=== PATIENT | male | born 1965 | race Caucasian/White ===

== ENCOUNTER 2017-09-05 07:45 | Emergency (ER) | payer BC, OTHER ==
[~2017-09-05] VITALS: Ht 182.9 cm; Wt 86.8 kg
[~2017-09-05 07:45] MED LIST: ACIP20TA19 PO; ASPI81 PO; CYCL5TAB PO; GLUCTAB PO; INSU100V2 IJ; INSU100V3 SC; LOTE40TA PO; PRAV40TA PO; TYLE3 PO; [UNRECOGNIZED DRUG - CODE] PO
[2017-09-05 07:47] VITALS: BP 133/81; PULSE 83; RESP 16; TEMP 97.8; O2SAT 97
[2017-09-05] MEDS ORDERED: GABA100C4 PO (08:05)
[2017-09-05] MEDS ORDERED: BACT800T5 PO (08:05)
[2017-09-05] MEDS ORDERED: IRBE75TA5 PO (08:05)
[2017-09-05] MEDS ORDERED: SODIUM CHLORIDE 0.9% FLUSH 10 ML FLUSH IVF PRN (08:15)
--- NOTE | 2017-09-05 08:23 | PD ---
HPI Chief Complaint: Skin Problem Time Seen by Provider: 08:07 Travel History International Travel<30 days: No Contact w/Intl Traveler<30days: No Traveled to known affect area: No History of Present Illness HPI 52-year-old male states he has had a lesion to his right private area for the past 3 days. He states that he called his physician yesterday and was started on Augmentin and trying warm washcloths. He denies any improvement and states in fact it is getting bigger. He denies any other concurrent complaints at this time. Location is primary. Quality is red. Severity is painful per patient. He states it hurts worse if you touch the area. He denies any other modifying factors. PFSH Past Medical History Arthritis: Yes High Cholesterol: Yes Diabetes: Yes Patient Takes Glucophage: No Diminished Hearing: No GERD: Yes Hypertension: Yes Neurologic: Yes (NEUROPATHY) Influenza Vaccination: No ?: Not Past Surgical History Appendectomy: Yes Tonsillectomy: Yes Other Surgery: Yes (EUSTATION TUBE) Social History Alcohol Use: Yes (3 TIMES A YEAR, 1 LIQUOR DRINK) Tobacco Use: Yes (CIGARETTES, 1 PPD X 18 YEARS) Substance Use: No Allergies-Medications (Allergen,Severity, Reaction): Coded Allergies: No Known Allergies (Verified Adverse Reaction, Unknown, 09/05/17) Reported Meds & Prescriptions Reported Meds & Active Scripts Active Reported Bactrim DS (Sulfamethoxazole-Trimethoprim) 800-160 Mg Tab 1 Tab PO BID Gabapentin 100 Mg Cap 200 Mg PO TID Irbesartan 75 Mg Tab 0 PO HS Review of Systems Except as stated in HPI: all other systems reviewed are Neg Physical Exam Narrative GENERAL: 52-year-old male in no apparent distress SKIN: To right lower scrotal area there is approximately 4 x 3 cm area of induration with overlying warmth noted, no crepitus HEAD: Atraumatic. Normocephalic. EYES: Pupils equal and round. No scleral icterus. No injection or drainage. ENT: No nasal bleeding or discharge. Mucous membranes pink and moist. NECK: Trachea midline. CARDIOVASCULAR: Regular rate and rhythm. RESPIRATORY: No accessory muscle use. No increased effort GASTROINTESTINAL: Abdomen soft, non-tender, nondistended. MUSCULOSKELETAL: No obvious deformities. No clubbing. No cyanosis. No edema. NEUROLOGICAL: Awake and alert. No obvious cranial nerve deficits. Motor grossly within normal limits. Normal speech. PSYCHIATRIC: Appropriate mood and affect; insight and judgment normal. Data Data Last Documented VS Vital Signs Date Time Temp Pulse Resp B/P (MAP) Pulse Ox O2 Delivery O2 Flow Rate FiO2 09/05/17 10:20 09/05/17 09:42 71 18 98 Room Air 09/05/17 07:47 97.8 Orders Orders Complete Blood Count With Diff (09/05/17 08:12) Basic Metabolic Panel (Bmp) (09/05/17 08:12) Urinalysis - C+S If Indicated (09/05/17 08:12) Ecg Monitoring (09/05/17 08:12) Iv Access Insert/Monitor (09/05/17 08:12) Sodium Chloride 0.9% Flush (Ns Flush) (09/05/17 08:15) Us Testicles W Doppler (09/05/17 ) Ct Abd/Pel W Iv Contrast(Rout) (09/05/17 ) Piperacil-Tazo 3.375 Gm Premix (Zosyn 3. (09/05/17 09:00) Iohexol 350 Inj (Omnipaque 350 Inj) (09/05/17 09:30) Labs Laboratory Tests Test 09/05/17 08:35 09/05/17 08:40 White Blood Count 12.9 TH/MM3 Red Blood Count 5.00 MIL/MM3 Hemoglobin 14.4 GM/DL Hematocrit 42.9 % Mean Corpuscular Volume 85.7 FL Mean Corpuscular Hemoglobin 28.8 PG Mean Corpuscular Hemoglobin Concent 33.7 % Red Cell Distribution Width 12.3 % Platelet Count 171 TH/MM3 Mean Platelet Volume 8.1 FL CBC Comment AUTO DIFF Differential Total Cells Counted 100 Neutrophils % (Manual) 77 % Band Neutrophils % 13 % Lymphocytes % 6 % Monocytes % 3 % Eosinophils % 1 % Neutrophils # (Manual) 11.6 TH/MM3 Differential Comment FINAL DIFF MANUAL Platelet Estimate NORMAL Platelet Morphology Comment NORMAL Red Cell Morphology Comment NORMAL Blood Urea Nitrogen 12 MG/DL Creatinine 0.91 MG/DL Random Glucose 155 MG/DL Calcium Level 8.9 MG/DL Sodium Level 137 MEQ/L Potassium Level 4.2 MEQ/L Chloride Level 102 MEQ/L Carbon Dioxide Level 27.7 MEQ/L Anion Gap 7 MEQ/L Estimat Glomerular Filtration Rate 88 ML/MIN Urine Collection Type CLEAN CATCH Urine Color YELLOW Urine Turbidity CLEAR Urine pH 6.0 Urine Specific [place] 1.010 Urine Protein NEG mg/dL Urine Glucose (UA) NEG mg/dL Urine Ketones NEG mg/dL Urine Occult Blood NEG Urine Nitrite NEG Urine Bilirubin NEG Urine Urobilinogen 0.2 MG/DL Urine Leukocyte Esterase NEG Urine Squamous Epithelial Cells 0-5 /hpf Microscopic Urinalysis Comment CULT NOT INDICATED Urine Collection Time 0840 MDM Medical Decision Making Medical Screen Exam Complete: Yes Emergency Medical Condition: Yes Medical Record Reviewed: Yes (Past history confirmed) Interpretation(s) CBC & BMP Diagram 09/05/17 08:35 Calcium Level 8.9 Last 24 hours Impressions Scrotum Ultrasound 09/05/17 0000 Signed Impressions: CONCLUSION: 1. Findings are concerning for possible area of bowel herniation into the righ t hemiscrotum. The areas of dirty shadowing are consistent with air. Given the adjacent soft tissue thickening findings are highly suspicious for an area of i nfection. Recommend further evaluation of the area with contrast-enhanced CT to evaluate for extent of infection and to exclude subcutaneous air. 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 2. Bilateral small varicoceles. Normal evaluation of the testicles. Abdomen/Pelvis CT 09/05/17 0000 Signed Impressions: CONCLUSION: 1. Right inguinal adenopathy and localized abscess identified within the right hemiscrotum. No evidence of small bowel herniation or intraperitoneal abnormal ity. Differential Diagnosis Abscess, cellulitis, folliculitis Narrative Course We will check blood work, urinalysis, scrotal ultrasound to assess size of likely abscess and then will discuss with urology Given ultrasound will add on CT and discuss with urology CT shows abscess will update urology Patient originally agreed to transfer and further care with urology in the operating room but then changed his mind and he said he was leaving AMA AMA: The risks of leaving against medical advice without further evaluation treatment were discussed with the patient. These risks include cardiac dysfunction, cardiac dysrhythmia, possible heart attack, possible stroke or . The patient indicated understanding of these risks and appeared to have the capacity to make this decision. Physician Communication Physician Communication [address] neves states to call back with ct dr neves states to admit to medicine in [facility] and keep npo for OR Diagnosis Primary Impression: Scrotal abscess Disposition: 07 AGAINST MEDICAL ADVICE Condition: Stable Georgia Gary MD Sep 05, 2017 08:23
[2017-09-05 08:46] LABS: HEMATOCRIT 42.9 % (39.0-51.0); HEMOGLOBIN 14.4 GM/DL (13.0-17.0); MEAN CELL VOLUME 85.7 FL (80.0-100.0); MEAN CORPUSCULAR HEMOGLOBIN 28.8 PG (27.0-34.0); MEAN CORPUSCULAR HGB CONC 33.7 % (32.0-36.0); MEAN PLATELET VOLUME 8.1 FL (7.0-11.0); PLATELET COUNT 171 TH/MM3 (150-450); RED CELL DISTRIBUTION WIDTH 12.3 % (11.6-17.2); WHITE BLOOD COUNT 12.9 TH/MM3 (4.0-11.0)
--- NOTE | 2017-09-05 08:49 | RADRPT ---
EXAM DATE: 09/05/2017 8:40 AM EDT AGE/SEX: 52 years / Male INDICATIONS: Right scrotal redness and pain. CLINICAL DATA: This is the patient's initial encounter. Patient reports that signs and symptoms have been present for 4 - 6 days and indicates a pain score of 10/10. MEDICAL/SURGICAL HISTORY: . Hypertension. GERD. Diabetic. Appendectomy. Tonsillectomy. COMPARISON: No prior [place] exams available for comparison. MEASUREMENTS (cm x cm x cm): Right Testicle:__5.0 x 3.9 x 2.9 Left Testicle:__3.8 x 3.2 x 2.3 cm FINDINGS: Right Testicle: Homogeneous echotexture without intra or extratesticular mass. Blood flow is symmet meghan and within normal limits. Epididymis is within normal limits. There is a small hydrocele and va ricocele present. There is a rounded area of mixed echogenicity and areas of dirty shadowing identifi ed within the posterior lateral scrotum immediately adjacent to the testicle with adjacent skin thick ening. This area measures 3.5 x 1.8 x 2.9 cm in size. Left Testicle: Homogeneous echotexture without intra or extratesticular mass. Blood flow is symmetr ic and within normal limits. Small left varicocele. Epididymis is within normal limits. Scrotum: Abnormal skin thickening with focal area of mixed echogenicity identified within the right hemiscrotum adjacent to the right testicle. CONCLUSION: 1. Findings are concerning for possible area of bowel herniation into the right hemiscrotum. The are as of dirty shadowing are consistent with air. Given the adjacent soft tissue thickening findings are highly suspicious for an area of infection. Recommend further evaluation of the area with contrast-e nhanced CT to evaluate for extent of infection and to exclude subcutaneous air. Concern for Ismael' s gangrene. 2. Bilateral small varicoceles. Normal evaluation of the testicles. Electronically signed by: Melissa Varela MD 09/05/2017 8:48 AM EDT
[2017-09-05] MEDS ORDERED: PIPERACIL-TAZO 3.375 GM PREMIX 50 ML IV ONE (09:00)
[2017-09-05 09:06] LABS: CALCIUM 8.9 MG/DL (8.5-10.1)
[2017-09-05 09:07] LABS: BICARBONATE 27.7 MEQ/L (21.0-32.0)
[2017-09-05 09:10] LABS: CREATININE 0.91 MG/DL (0.60-1.30)
[2017-09-05 09:11] LABS: BILIRUBIN, URINE NEG (NEG); BLOOD, URINE NEG (NEG); GLUCOSE,URINE NEG (NEG); KETONE, URINE NEG (NEG); NITRITE,URINE NEG (NEG); URINE COLOR YELLOW (YELLW/STRAW); URINE LEUKOCYTE ESTERASE NEG (NEG)
[2017-09-05] MEDS ORDERED: IOHEXOL 350 MG/ML 10 ML VIAL (for RAD DIAG) IVCONTRAST ONE (09:30)
[2017-09-05 09:41] LABS: SQUAMOUS EPITHELIAL CELL URINE 0-5 /hpf (0-5)
[2017-09-05 09:42] VITALS: BP 139/78; PULSE 71; RESP 18; O2SAT 98
--- NOTE | 2017-09-05 09:52 | RADRPT ---
EXAM DATE: 09/05/2017 9:42 AM EDT AGE/SEX: 52 years / Male INDICATIONS: Right groin pain for three days. CLINICAL DATA: This is the patient's initial encounter. Patient reports that signs and symptoms have been present for 3 days and indicates a pain score of 7/10. MEDICAL/SURGICAL HISTORY: Gastroesophageal reflux disease. Hypertension. Appendectomy. ORAL CONTRAST: No oral contrast ingested. RADIATION DOSE: 9.66 CTDI (mGy) COMPARISON: [facility], US TESTICLE W/DOPPLER, 09/05/2017. . TECHNIQUE: Multiple contiguous axial images were obtained through the abdomen and pelvis following b olus infusion of 94 ml Omnipaque 350 (iohexol) nonionic water-soluble contrast as a single exam dos e. No oral contrast ingested. Using automated exposure control and adjustment of the mA and/or kV ac cording to patient size, the radiation dose was kept as low as reasonably achievable to obtain optima l diagnostic quality images. FINDINGS: Imaging through the scrotum demonstrates a localized air and fluid within the right hemiscr otum seen only on the axial views. This area measures 3.6 x 2.6 cm in size. This does not appear to c ommunicate with the inguinal ring. Lower Lungs: The visualized lower lungs are clear. Liver: The liver has a homogeneous density without space-occupying lesion. There is no dilation of th e biliary tree. Spleen: Homogeneous density without enlargement. Pancreas: Unremarkable without mass or calcification. Kidneys: Normal in size and shape. No evidence of mass or hydronephrosis. Adrenal Glands: Unremarkable. Aorta: The aorta and proximal iliac vessels are grossly unremarkable without aneurysmal dilation. Bowel/Mesentery: Diverticulosis of the sigmoid colon. Abdominal Wall: Intact. Retroperitoneum: No evidence of adenopathy in the retrocrural, para-aortic, or deep pelvic regions. Bladder: Contours are smooth. Reproductive Organs: No abnormal masses or calcifications seen. Inguinal: Right inguinal adenopathy. Bony Structures: Unremarkable. CONCLUSION: 1. Right inguinal adenopathy and localized abscess identified within the right hemiscrotum. No evide nce of small bowel herniation or intraperitoneal abnormality. Electronically signed by: Melissa Varela MD 09/05/2017 9:51 AM EDT
[2017-09-05 10:01] LABS: BANDS 13 % (0-6); LYMPHOCYTES 6 % (9-44); MONOCYTES 3 % (0-8); NEUTROPHIL # MANUAL DIFF 11.6 TH/MM3 (1.8-7.7); POLYS (SEG NEUTROPHILS) 77 % (16-70)
== END 2017-09-05 10:33 | disposition left against medical advice (07) ==
LOC: PHED 07:45
DX: N49.2 Inflammatory disorders of scrotum (principal); Z53.20 Procedure and treatment not carried out because of patient's decision for unspecified reasons; I10 Essential (primary) hypertension; E78.00 Pure hypercholesterolemia, unspecified; E11.9 Type 2 diabetes mellitus without complications; F17.210 Nicotine dependence, cigarettes, uncomplicated; Z79.899 Other long term (current) drug therapy; Z79.2 Long term (current) use of antibiotics
CPT/HCPCS: 74177; 76870; 80048; 81001; 85007; 85027; 93975; 99285; J2543; Q9967

== ENCOUNTER 2017-09-06 08:04 | Inpatient (IN) | payer BC ==
[~2017-09-06] VITALS: Ht 182.9 cm; Wt 90.0 kg
[~2017-09-06 08:04] MED LIST changes: -ACIP20TA19 PO; -ASPI81 PO; +BACT800T5 PO; -CYCL5TAB PO; +GABA100C4 PO; -GLUCTAB PO; -INSU100V2 IJ; -INSU100V3 SC; +IRBE75TA5 PO; -LOTE40TA PO; -PRAV40TA PO; -TYLE3 PO; -[UNRECOGNIZED DRUG - CODE] PO
[2017-09-06 08:08] VITALS: BP 139/85; PULSE 97; RESP 16; TEMP 98.4; O2SAT 99
[2017-09-06] MEDS ORDERED: SODIUM CHLORIDE 0.9% FLUSH 10 ML FLUSH IV FLUSH PRN (08:30)
[2017-09-06 08:31] VITALS: O2SAT 96
[2017-09-06] MEDS ORDERED: MORPHINE SULFATE 4 MG/ML INJ IV PUSH ONE (09:45)
--- NOTE | 2017-09-06 09:50 | PD ---
HPI Chief Complaint: Skin Problem Time Seen by Provider: 08:19 Travel History International Travel<30 days: No Contact w/Intl Traveler<30days: No Traveled to known affect area: No History of Present Illness HPI pt is a 52 y.o male who presents to the ED with a cc of scrotal abscess. The "mass" appeared 4 days ago and has been getting more tender, larger, and more erythematous. Pt denies Fever, nausea, vomiting. Patient states he went to an outside physician and was started on Augmentin. He states that he then was at the [place] ED yesterday with the same sxs. At that time he had an ultrasound of the scrotum as well as a CAT scan of the scrotum which showed an intrascrotal abscess, he was discussed with Dr. woo by the ER physician and recommended transfer to the main hospital for surgical drainage. The patient ultimately signed out AGAINST MEDICAL ADVICE. He tells me he did this because he was unhappy with the care he was receiving there for no other reason. He has been continued to take his Augmentin. He came to our hospital today for further advice and care. PFSH Past Medical History Arthritis: Yes High Cholesterol: Yes Diabetes: Yes Patient Takes Glucophage: No (unknown) Diminished Hearing: No GERD: Yes Hypertension: Yes Neurologic: Yes (NEUROPATHY) Past Surgical History Appendectomy: Yes Tonsillectomy: Yes Other Surgery: Yes (EUSTATION TUBE) Social History Alcohol Use: Yes (3 TIMES A YEAR, 1 LIQUOR DRINK) Tobacco Use: Yes (CIGARETTES, 1 PPD X 18 YEARS) Substance Use: No Allergies-Medications (Allergen,Severity, Reaction): Coded Allergies: No Known Allergies (Verified Allergy, Unknown, 09/06/17) Reported Meds & Prescriptions Reported Meds & Active Scripts Active Reported Bactrim DS (Sulfamethoxazole-Trimethoprim) 800-160 Mg Tab 1 Tab PO BID Gabapentin 100 Mg Cap 200 Mg PO TID Irbesartan 75 Mg Tab 0 PO HS Review of Systems Except as stated in HPI: all other systems reviewed are Neg Physical Exam Narrative GENERAL: well developed, well nourished male in no acute distress, appears nontoxic peer SKIN: Warm and dry. HEAD: Atraumatic. Normocephalic. EYES: Pupils equal and round. No scleral icterus. No injection or drainage. ENT: No nasal bleeding or discharge. Mucous membranes pink and moist. NECK: Trachea midline. No JVD. CARDIOVASCULAR: Regular rate and rhythm. RESPIRATORY: No accessory muscle use. Clear to auscultation. Breath sounds equal bilaterally. GASTROINTESTINAL: Abdomen soft, non-tender, nondistended. Hepatic and splenic margins not palpable. MUSCULOSKELETAL: Extremities without clubbing, cyanosis, or edema. No obvious deformities. NEUROLOGICAL: Awake and alert. No obvious cranial nerve deficits. Motor grossly within normal limits. Five out of 5 muscle strength in the arms and legs. Normal speech. PSYCHIATRIC: Appropriate mood and affect; insight and judgment normal. exam: pt has a 2.5 cm highly tender, indurated, erythematous mass on the lateral aspect of R hemiscrotum. There is a central ulceration with very minimal yellowish discharge. There is a small eschar forming as well. No crepitance was felt, there is no involvement of the penis mons pubis or perineum. Data Data Last Documented VS Vital Signs Date Time Temp Pulse Resp B/P (MAP) Pulse Ox O2 Delivery O2 Flow Rate FiO2 09/06/17 08:31 96 09/06/17 08:08 98.4 97 16 139/85 (103) Orders Orders Complete Blood Count With Diff (09/06/17 08:19) Comprehensive Metabolic Panel (09/06/17 08:19) Lipase (09/06/17 08:19) Urinalysis - C+S If Indicated (09/06/17 08:19) Iv Access Insert/Monitor (09/06/17 08:19) Ecg Monitoring (09/06/17 08:19) Oximetry (09/06/17 08:19) Sodium Chloride 0.9% Flush (Ns Flush) (09/06/17 08:30) Blood Culture (09/06/17 09:28) Lactic Acid (09/06/17 09:28) Morphine Inj (Morphine Inj) (09/06/17 09:45) Vancomycin Inj (Vancomycin Inj) (09/06/17 10:15) Piperacil-Tazo 4.5 Gm Premix (Zosyn 4.5 (09/06/17 10:15) Diet Npo Except Meds (09/06/17 Lunch) Consent (09/06/17 10:36) Electrocardiogram (09/06/17 ) Admit Order (Ed Use Only) (09/06/17 ) Consult Urology (09/06/17 ) Labs Laboratory Tests Test 09/06/17 09:30 White Blood Count 13.5 TH/MM3 Red Blood Count 5.37 MIL/MM3 Hemoglobin 15.2 GM/DL Hematocrit 45.0 % Mean Corpuscular Volume 83.9 FL Mean Corpuscular Hemoglobin 28.3 PG Mean Corpuscular Hemoglobin Concent 33.7 % Red Cell Distribution Width 13.2 % Platelet Count 202 TH/MM3 Mean Platelet Volume 8.4 FL Neutrophils (%) (Auto) 81.8 % Lymphocytes (%) (Auto) 10.7 % Monocytes (%) (Auto) 5.9 % Eosinophils (%) (Auto) 1.2 % Basophils (%) (Auto) 0.4 % Neutrophils # (Auto) 11.0 TH/MM3 Lymphocytes # (Auto) 1.4 TH/MM3 Monocytes # (Auto) 0.8 TH/MM3 Eosinophils # (Auto) 0.2 TH/MM3 Basophils # (Auto) 0.0 TH/MM3 CBC Comment DIFF FINAL Differential Comment Blood Urea Nitrogen 13 MG/DL Creatinine 0.97 MG/DL Random Glucose 126 MG/DL Total Protein 7.6 GM/DL Albumin 3.8 GM/DL Calcium Level 9.2 MG/DL Alkaline Phosphatase 32 U/L Aspartate Amino Transf (AST/SGOT) 10 U/L Alanine Aminotransferase (ALT/SGPT) 16 U/L Total Bilirubin 0.8 MG/DL Sodium Level 138 MEQ/L Potassium Level 4.3 MEQ/L Chloride Level 103 MEQ/L Carbon Dioxide Level 27.7 MEQ/L Anion Gap 7 MEQ/L Estimat Glomerular Filtration Rate 82 ML/MIN Lactic Acid Level 0.8 mmol/L Lipase 115 U/L MDM Medical Decision Making Medical Screen Exam Complete: Yes Emergency Medical Condition: Yes Differential Diagnosis Scrotal Abscess; Necrotizing Fasciitis, Cellulitis, Incarcerated inguinal hernia. Narrative Course Patient room to the emergency department, after physical exam by me I do not appreciate this to be necrotizing fasciitis, the patient appears well and nontoxic, the cellulitis has not significantly spread per him since discharge from the hospital yesterday. There is no extension of the cellulitis beyond the scrotal sac at this time. I reviewed his CT images from yesterday with the radiologist and she confirms that this appears to be an intrascrotal abscess and recommend urology consultation, this would coincide with physical exam findings. The patient was discussed with Dr. Lou who agrees the patient should be admitted to the hospital started on broad-spectrum IV antibiotics and he will come see the patient for surgical options. Patient was discussed with Dr. Gustafson who will admit. Diagnosis Primary Impression: Scrotal abscess Admitting Information Admitting Physician Requests: Admit Condition: Stable Isaiah Noonan MD Sep 06, 2017 09:50
[2017-09-06] MEDS ORDERED: VANCOMYCIN INJ 1,000 MG in SODIUM CHLOR 0.9% 250 ML INJ 250 ML IV ONE (10:15)
[2017-09-06] MEDS ORDERED: PIPERACIL-TAZO 4.5 GM PREMIX 100 ML IV ONE (10:15)
[2017-09-06 10:22] LABS: BASOPHIL % 0.4 % (0.0-2.0); EOSINOPHIL # 0.2 TH/MM3 (0-0.4); EOSINOPHIL % 1.2 % (0.0-4.0); HEMOGLOBIN 15.2 GM/DL (13.0-17.0); LYMPH % 10.7 % (9.0-44.0); LYMPHOCYTE # 1.4 TH/MM3 (1.0-4.8); MEAN CELL VOLUME 83.9 FL (80.0-100.0); MEAN CORPUSCULAR HEMOGLOBIN 28.3 PG (27.0-34.0); MEAN CORPUSCULAR HGB CONC 33.7 % (32.0-36.0); MEAN PLATELET VOLUME 8.4 FL (7.0-11.0); MONO % 5.9 % (0.0-8.0); MONOCYTE # 0.8 TH/MM3 (0-0.9); NEUT % 81.8 % (16.0-70.0); PLATELET COUNT 202 TH/MM3 (150-450); RED BLOOD COUNT 5.37 MIL/MM3 (4.50-5.90); RED CELL DISTRIBUTION WIDTH 13.2 % (11.6-17.2); WHITE BLOOD COUNT 13.5 TH/MM3 (4.0-11.0)
[2017-09-06 10:42] LABS: ALBUMIN 3.8 GM/DL (3.4-5.0); ALT (GPT) 16 U/L (12-78); AST (GOT) 10 U/L (15-37); BICARBONATE 27.7 MEQ/L (21.0-32.0); BLOOD UREA NITROGEN 13 MG/DL (7-18); CALCIUM 9.2 MG/DL (8.5-10.1); CHLORIDE 103 MEQ/L (98-107); CREATININE 0.97 MG/DL (0.60-1.30); GLOMERULAR FILTRATION RATE 82 ML/MIN (>89); GLUCOSE,RANDOM 126 MG/DL (74-106); SODIUM (NA) 138 MEQ/L (136-145)
[2017-09-06 10:44] LABS: ALKALINE PHOSPHATASE 32 U/L (45-117); TOTAL BILIRUBIN ADULT 0.8 MG/DL (0.2-1.0); TOTAL PROTEIN 7.6 GM/DL (6.4-8.2)
[2017-09-06] MEDS ORDERED: GLUCAGON 1 MG/ML VIAL OTHER PRN ×2 (11:15→19:45)
[2017-09-06] MEDS ORDERED: MORPHINE SULFATE 2 MG/ML SYRINGE IV PUSH PRN (11:15)
[2017-09-06] MEDS ORDERED: Vancomycin Consult Pharmacy 1 EA OTHER SCH (11:15)
[2017-09-06] MEDS ORDERED: DEXTROSE 50% IN WATER 50 ML VIAL(D50) IV PUSH PRN ×2 (11:15→19:45)
--- NOTE | 2017-09-06 11:15 | HHI.HP ---
[facility] Michael Varner MD Admission Diagnosis Intrascrotal Abscess Diagnoses: (1) Scrotal abscess Diagnosis: Principal Chief Complaint: scrotal infection Travel History International Travel<30 Days: No Contact w/Intl Traveler <30 Da: No Traveled to Known Affected Are: No History of Present Illness patient is a 52 y/o male with history of hypertension, diabetes, neuropathy who presented to ER with scrotal infection. he says that it started as a 'little white bump' four days ago and then started to get worse. he says that there was a little pus coming out of it yesterday. he was seen at [place] [facility] yesterday but he signed out and came back to ER again today. he denies any fever or chills. he says that he was prescribed Augmentin on Thursday by his PCP which he's been taking since then with no improvement. Review of Systems Constitutional: DENIES: Fever, Weight loss, Chills, Night Sweats Eyes: DENIES: Blurred vision, Diplopia, Vision loss, Double Vision Ears, nose, mouth, throat: DENIES: Tinnitus, Vertigo, Throat pain, Epistaxis Respiratory: DENIES: Apneas, Cough, Snoring, Wheezing, Hemoptysis, Sputum production, Shortness of breath Cardiovascular: DENIES: Chest pain, Palpitations, Syncope, Dyspnea on Exertion , PND, Lower Extremity Edema, Orthopnea, Claudication Gastrointestinal: DENIES: Abdominal pain, Black stools, Bloody stools, Constipation, Diarrhea, Nausea, Vomiting, Difficulty Swallowing, Anorexia Genitourinary: COMPLAINS OF: Testicular Swelling, DENIES: Urinary frequency, Urgency, Hematuria, Dysuria Musculoskeletal: DENIES: Joint pain, Muscle aches, Stiffness, Joint Swelling Integumentary: DENIES: Rash Neurologic: DENIES: Abnormal gait, Headache, Localized weakness, Paresthesias, Seizures, Speech Problems, Tremor, Poor Balance Psychiatric: DENIES: Anxiety, Confusion, Mood changes, Depression, Hallucinations, Agitation, Suicidal Ideation, Homicidal Ideation, Delusions Past Family Social History Past Medical History hypertension/ diabetes mellitus/ neuropathy Past Surgical History appendectomy Reported Medications Ibesartan/ gabapentin Allergies: Coded Allergies: No Known Allergies (Verified Adverse Reaction, Unknown, 09/05/17) Active Ordered Medications Inpatient Medications Morphine Sulfate (Morphine Inj) 4 mg ONCE ONCE IV PUSH Last administered on 09/06/17at 10:11; Start 09/06/17 at 09:45; Stop 09/06/17 at 09:46; Status DC Piperacillin Sod/ Tazobactam Sod 100 ml @ 200 mls/hr ONCE ONCE IV ; Start 09/06 at 10:15; Stop 09/06/17 at 10:44; Status DC Sodium Chloride (NS Flush) 2 ml UNSCH PRN IV FLUSH FLUSH AFTER USING IV ACCESS ; Start 09/06/17 at 08:30 Vancomycin HCl 1000 mg/Sodium Chloride 250 ml @ 250 mls/hr ONCE ONCE IV Last administered on 09/06/17at 10:12; Start 09/06/17 at 10:15; Stop 09/06/17 at 11:14 Family History diabetes. Social History smokes a pack a day/ doesn't drink. Physical Exam Vital Signs Vital Signs Date Time Temp Pulse Resp B/P (MAP) Pulse Ox O2 Delivery O2 Flow Rate FiO2 09/06/17 08:31 96 09/06/17 08:08 98.4 97 16 139/85 (103) 99 Physical Exam GENERAL: This is a well-nourished, well-developed patient, in no apparent distress. SKIN: No rashes, ecchymoses or lesions. Cool and dry. HEAD: Atraumatic. Normocephalic. No temporal or scalp tenderness. EYES: Pupils equal round and reactive. Extraocular motions intact. No scleral icterus. No injection or drainage. ENT: Nose without bleeding, purulent drainage or septal hematoma. Throat without erythema, tonsillar hypertrophy or exudate. Uvula midline. Airway patent. NECK: Trachea midline. No JVD or lymphadenopathy. Supple, nontender, no meningeal signs. CARDIOVASCULAR: Regular rate and rhythm without murmurs, gallops, or rubs. RESPIRATORY: Clear to auscultation. Breath sounds equal bilaterally. No wheezes , rales, or rhonchi. GASTROINTESTINAL: Abdomen soft, non-tender, nondistended. No hepato-splenomegaly , or palpable masses. No guarding. MUSCULOSKELETAL: Extremities without clubbing, cyanosis, or edema. No joint tenderness, effusion, or edema noted. No calf tenderness. Negative Homans sign bilaterally. NEUROLOGICAL: Awake and alert. Cranial nerves II through XII intact. Motor and sensory grossly within normal limits. Five out of 5 muscle strength in all muscle groups. Normal speech. Laboratory Laboratory Tests Test 09/06/17 09:30 White Blood Count 13.5 Red Blood Count 5.37 Hemoglobin 15.2 Hematocrit 45.0 Mean Corpuscular Volume 83.9 Mean Corpuscular Hemoglobin 28.3 Mean Corpuscular Hemoglobin Concent 33.7 Red Cell Distribution Width 13.2 Platelet Count 202 Mean Platelet Volume 8.4 Neutrophils (%) (Auto) 81.8 Lymphocytes (%) (Auto) 10.7 Monocytes (%) (Auto) 5.9 Eosinophils (%) (Auto) 1.2 Basophils (%) (Auto) 0.4 Neutrophils # (Auto) 11.0 Lymphocytes # (Auto) 1.4 Monocytes # (Auto) 0.8 Eosinophils # (Auto) 0.2 Basophils # (Auto) 0.0 CBC Comment DIFF FINAL Differential Comment Blood Urea Nitrogen 13 Creatinine 0.97 Random Glucose 126 Total Protein 7.6 Albumin 3.8 Calcium Level 9.2 Alkaline Phosphatase 32 Aspartate Amino Transf (AST/SGOT) 10 Alanine Aminotransferase (ALT/SGPT) 16 Total Bilirubin 0.8 Sodium Level 138 Potassium Level 4.3 Chloride Level 103 Carbon Dioxide Level 27.7 Anion Gap 7 Estimat Glomerular Filtration Rate 82 Lactic Acid Level 0.8 Lipase 115 Date/Time Source Procedure Growth Status 09/06/17 09:35 Blood Peripheral Aerobic Blood Culture Pending Received 09/06/17 09:35 Blood Peripheral Anaerobic Blood Culture Pending Received Result Diagram: 09/06/1730 09/06/1730 Caprini VTE Risk Assessment Caprini VTE Risk Assessment: Mod/High Risk (score >= 2) Caprini Risk Assessment Model Point Value = 1 Point Value = 2 Point Value = 3 Point Value = 5 Age 41-60 Minor surgery BMI > 25 kg/m2 Swollen legs Varicose veins or History of unexplained or recurrent spontaneous Oral contraceptives or hormone replacement Sepsis (< 1 month) Serious lung disease, including pneumonia (< 1 month) Abnormal pulmonary function Acute myocardial infarction Congestive heart failure (< 1 month) History of inflammatory bowel disease Medical patient at bed rest Age 61-74 Arthroscopic surgery Major open surgery (> 45 min) Laparoscopic surgery (> 45 min) Malignancy Confined to bed (> 72 hours) Immobilizing plaster cast Central venous access Age >= 75 History of VTE Family history of VTE Factor V Leiden Prothrombin [id number] Lupus anticoagulant Anticardiolipin antibodies Elevated serum homocysteine Heparin-induced thrombocytopenia Other congenital or acquired thrombophilia Stroke (< 1 month) Elective arthroplasty Hip, pelvis, or leg fracture Acute spinal cord injury (< 1 month) Prophylaxis Regimen Total Risk Factor Score Risk Level Prophylaxis Regimen 0-1 Low Early ambulation 2 Moderate Order ONE of the following: *Sequential Compression Device (SCD) *Heparin 5000 units SQ BID 3-4 Higher Order ONE of the following medications: *Heparin 5000 units SQ TID *Enoxaparin/Lovenox 40 mg SQ daily (WT < 150 kg, CrCl > 30 mL/min) *Enoxaparin/Lovenox 30 mg SQ daily (WT < 150 kg, CrCl > 10-29 mL/min) *Enoxaparin/Lovenox 30 mg SQ BID (WT < 150 kg, CrCl > 30 mL/min) AND/OR *Sequential Compression Device (SCD) 5 or more Highest Order ONE of the following medications: *Heparin 5000 units SQ TID (Preferred with Epidurals) *Enoxaparin/Lovenox 40 mg SQ daily (WT < 150 kg, CrCl > 30 mL/min) *Enoxaparin/Lovenox 30 mg SQ daily (WT < 150 kg, CrCl > 10-29 mL/min) *Enoxaparin/Lovenox 30 mg SQ BID (WT < 150 kg, CrCl > 30 mL/min) AND *Sequential Compression Device (SCD) Assessment and Plan Assessment and Plan A/P - scrotal abscess keep NPO for now- continue with IV antibiotics and pain control- Urology consulted. -diabetes mellitus; diet controlled- accu-check with SSI- -hypertension; resume home meds upon discharge- will monitor. Discussed Condition With ER physician and the patient. Physician Certification 2 Midnight Certification Type: Admission for Inpatient Services Order for Inpatient Services The services are ordered in accordance with Medicare regulations or non- Medicare payer requirements, as applicable. In the case of services not specified as inpatient-only, they are appropriately provided as inpatient services in accordance with the 2-midnight benchmark. Estimated LOS (days): 2 days is the estimated time the patient will need to remain in the hospital, assuming treatment plan goals are met and no additional complications. Post-Hospital Plan: Home Guerrero Gustafson MD Sep 06, 2017 11:15
[2017-09-06] MEDS: SODIUM CHLOR 0.9% 1000 ML INJ 1,000 ML IV SCH ×2 (11:25→21:39)
[2017-09-06] MEDS: INSULIN ASPART SUPPLEMENTAL SCALE SQ SCH ×3 (12:00→21:00)
[2017-09-06] MEDS ORDERED: PIPERACIL-TAZO 3.375 GM PREMIX 50 ML IV SCH (12:00)
[2017-09-06] MEDS ORDERED: LIDOCAINE HCL 1% PF 5 ML SYRINGE OTHER ONE (12:43)
[2017-09-06] MEDS ORDERED: SUCCINYLCHOLINE CHLORIDE 100 MG/5 ML SYRINGE IV PUSH ONE (12:43)
[2017-09-06] MEDS ORDERED: PROPOFOL 200 MG/20 ML AMP IV ONE (12:43)
[2017-09-06] MEDS ORDERED: ONDANSETRON HCL 4 MG/2 ML VIAL IV PUSH ONE (12:43)
[2017-09-06 14:15] VITALS: BP 123/66; PULSE 78; RESP 16; TEMP 98; O2SAT 94
[2017-09-06 16:00] VITALS: BP 136/72; PULSE 68; RESP 16; TEMP 98.1; O2SAT 96
[2017-09-06] MEDS ORDERED: LIDOCAINE HCL 1% PF 10 ML VIAL ONE (16:23)
[2017-09-06] MEDS ORDERED: FAMOTIDINE 20 MG/2 ML VIAL ONE (16:43)
[2017-09-06] MEDS ORDERED: ACETAMINOPHEN/HYDROcodone 325 MG/5 MG TAB PO PRN ×2 (17:00)
[2017-09-06] MEDS ORDERED: MORPHINE SULFATE 4 MG/ML INJ IV PRN (17:00)
[2017-09-06] MEDS: PIPERACIL-TAZO 3.375 GM PREMIX 50 ML IV SCH ×2 (17:00→22:36)
--- NOTE | 2017-09-06 18:02 | MB ---
cc: Alexis Lou MD, David J MD DATE: 09/06/2017 REASON FOR CONSULTATION: Right scrotal abscess. HISTORY OF PRESENT ILLNESS: This patient is a 52-year-old year old male with history of diabetes, who initially presented to the ER at [facility] yesterday with a complaint of right scrotal pain for the last 4 days. He said he noticed "little white bumps" approximately 4 days ago and slowly gotten worse. He called his primary care physician on Thursday, who prescribed Augmentin. However, overnight, the area in the scrotum became more red, inflamed and painful. He went to [place] [facility] yesterday, where a scrotal ultrasound was performed, which suggested a right scrotal abscess, as well as possible air in the scrotum concerning for Ismael's gangrene. The patient subsequently had a CT abdomen and pelvis with IV contrast performed, which confirmed the 3 cm abscess in the scrotum, but no evidence of any Ismael's. The plan was to transfer the patient to the [place] [facility] for incision and drainage of scrotal abscess. However, the patient left AMA. However, he returned this morning to [facility] with the same complaints. He was subsequently admitted and Urology was consulted. He continues to have pain in his right scrotum. It is nontender in nature, with some purulent drainage. He also had become nauseated, but denies fevers, chills, dysuria, hematuria, abdominal pain or flank pain. Denies prior infection of the scrotum in the past. Denies history of kidney stones or urinary tract infections. He denies any lower urinary tract symptoms. He has a strong stream. Feels like he empties his bladder. He only gets up one time a night. REVIEW OF SYSTEMS: See HPI, all systems reviewed otherwise were negative. PAST MEDICAL HISTORY: Significant for diabetes, neuropathy, hypertension. PAST SURGICAL HISTORY: Appendectomy, circumcision. REPORTED MEDICATIONS: Include gabapentin, losartan. ALLERGIES: NO KNOWN DRUG ALLERGIES. FAMILY HISTORY: Significant for diabetes. Denies urolithiasis, genitourinary malignancy. SOCIAL HISTORY: He smokes a pack a day. Denies alcohol or illicit drugs. Currently and self-employed. PHYSICAL EXAMINATION: VITAL SIGNS: Temperature 98.4, pulse 97, respiratory rate 16, BP 139/85, saturating 99% on room air. GENERAL: He is alert and oriented x 3, in no apparent distress, pleasant and cooperative gentleman, appears his stated age. HEAD: Head is normocephalic, atraumatic. EYES: No scleral icterus. Extraocular muscles intact. NECK: Supple. Trachea is midline. No JVD. EARS: External auditory hearing is normal. SKIN: Cool and moist. No ulcers or rashes are noticed. LUNGS: Clear to auscultation bilaterally. No wheezes, rales, rhonchi. HEART: Regular rate and rhythm. No murmurs, gallops, rubs. ABDOMEN: Soft, nontender, nondistended, positive bowel sounds. BACK: He has no CVA tenderness bilaterally. GENITOURINARY: His penis is circumcised. Urethral meatus is normal. His right hemiscrotum is inflamed, tender and fluctuant. The posterior portion of his right scrotum is consistent with a scrotal abscess. There is some mild purulent drainage being expressed. Left hemiscrotum is normal. RECTAL: I deferred to time of procedure. EXTREMITIES: Nontender. No clubbing, cyanosis or edema. NEUROLOGIC: Cranial nerves 2-12 intact. Strength 5/5 all 4 extremities. PSYCHIATRIC: Normal affect, he answers questions appropriately. LABORATORY DATA: Show a white count 13.5, hemoglobin 15.2, hematocrit 45.0, platelet count 202. Chemistry: Sodium 138, potassium 4.3, chloride 103, bicarbonate 27.7, BUN 13, creatinine 0.97, glucose 126. Lactic acid 0.8, lipase 115. IMAGING STUDIES: CT abdomen and pelvis with IV contrast was reviewed. According to the radiologist's report, the patient has a 3 cm posterior scrotal abscess. No evidence of any air or anything consistent with Ismael's gangrene. ASSESSMENT: The patient is a 52-year-old diabetic male who presents with a right scrotal mass. PLAN: Keep the patient n.p.o. We will schedule for incision and drainage of scrotal abscess in the OR today. He will then go home on oral antibiotics with daily dressing changes. Thank you for this consult. Alexis Lou MD EMF/XOCHITL , 05:02 PM , 06:01 PM
[2017-09-06] MEDS ORDERED: DO NOT ADM ANY ANTICOAGULANT DRUGS PRN (18:15)
[2017-09-06] MEDS ORDERED: ONDANSETRON HCL 4 MG/2 ML VIAL ONE (18:18)
[2017-09-06] MEDS ORDERED: *RESP: ALBUTEROL 2.5 MG/3 ML NEB (PRN) PERIprocedural Use ONLY NEB ONE (18:18)
--- NOTE | 2017-09-06 19:26 | MP ---
cc: Alexis Lou MD, David J MD DATE OF OPERATION: 09/06/2017 PREOPERATIVE DIAGNOSES: 1. Right scrotal abscess. 2. Diabetes. 3. Hypertension. 4. Alcoholism. POSTOPERATIVE DIAGNOSES: 1. Right scrotal abscess. 2. Diabetes. 3. Hypertension. 4. Alcoholism. PROCEDURE PERFORMED: Incision and drainage of right scrotal abscess. SURGEON: Alexis Lou MD ANESTHESIA: General. COMPLICATIONS: None. PREOPERATIVE ANTIBIOTICS: Vancomycin 1 gram IV. DRAINS: None. SPECIMEN: Scrotal abscess culture. ESTIMATED BLOOD LOSS: Minimal. DISPOSITION: Stable to recovery. INDICATIONS FOR PROCEDURE: The patient is a 52-year-old diabetic male who presents with a right scrotal abscess for the last 4 days. Treatments options were discussed ____ to proceed with incision and drainage under anesthesia. After risks, benefits and alternatives were explained to the patient, the patient elected to proceed and informed consent was obtained. DETAILS OF PROCEDURE: The patient was properly identified and brought back to the operating room, was placed supine on the operating table. Proper timeout was performed. ____ anesthesiology. The patient was ____ induced under general anesthetic. The patient had been receiving vancomycin 1 gram IV every 12 hours, therefore, preoperative antibiotics were not indicated. He was then prepped and draped in normal sterile surgical fashion. The indurated fluctuant area in his right hemiscrotum was identified. Using a 15 blade, I made a stab incision and a significant amount of purulent material was then drained. This was cultured. A hemostat was then used to break up any loculations subcutaneously. At this point, all purulent material had been drained or removed. The wound was then irrigated with warm saline. Half inch packing was used to pack the wound. This concluded the procedure. The patient was extubated and sent to recovery room in stable condition. He will be transferred back to the floor. As long as he does well later on, he can be discharged home. Followup in 7-10 days. He will go home on Bactrim and Percocet and daily dressing changes. Alexis Lou MD EMDamian/XOCHITL/silvia , 05:36 PM , 06:28 PM
[2017-09-06] MEDS ORDERED: PROCHLORPERAZINE INJ 10 MG/2 ML VIAL IV PUSH PRN (19:45)
[2017-09-06] MEDS: VANCOMYCIN INJ 1,500 MG in SODIUM CHLORID 0.9% 500 ML INJ 500 ML IV SCH (21:39)
[2017-09-06 21:45] VITALS: BP 111/71; PULSE 78; RESP 17; TEMP 98.6; O2SAT 95
[2017-09-07] VITALS: BP 115/75; PULSE 75; RESP 18; TEMP 97.8; O2SAT 96
[2017-09-07] MEDS: PIPERACIL-TAZO 3.375 GM PREMIX 50 ML IV SCH ×2 (04:28→11:00)
[2017-09-07 04:30] VITALS: BP 118/69; PULSE 67; RESP 17; TEMP 98; O2SAT 97
[2017-09-07 08:00] VITALS: BP 111/63; PULSE 63; RESP 18; TEMP 98.6; O2SAT 98
[2017-09-07] MEDS: SODIUM CHLOR 0.9% 1000 ML INJ 1,000 ML IV SCH (08:00)
[2017-09-07] MEDS: INSULIN ASPART SUPPLEMENTAL SCALE SQ SCH ×2 (08:00→12:00)
[2017-09-07] MEDS: VANCOMYCIN INJ 1,500 MG in SODIUM CHLORID 0.9% 500 ML INJ 500 ML IV SCH (08:23)
[2017-09-07] MEDS ORDERED: GABAPENTIN 100 MG CAP PO SCH (09:00)
[2017-09-07 11:22] LABS: AUTOMATED NEUTROPHIL # 8.7 TH/MM3 (1.8-7.7); BASOPHIL # 0.1 TH/MM3 (0-0.2); BASOPHIL % 0.7 % (0.0-2.0); EOSINOPHIL # 0.1 TH/MM3 (0-0.4); EOSINOPHIL % 0.9 % (0.0-4.0); HEMATOCRIT 39.2 % (39.0-51.0); HEMOGLOBIN 13.1 GM/DL (13.0-17.0); LYMPH % 12.2 % (9.0-44.0); LYMPHOCYTE # 1.3 TH/MM3 (1.0-4.8); MEAN CELL VOLUME 85.9 FL (80.0-100.0); MEAN CORPUSCULAR HEMOGLOBIN 28.7 PG (27.0-34.0); MEAN CORPUSCULAR HGB CONC 33.4 % (32.0-36.0); MEAN PLATELET VOLUME 8.2 FL (7.0-11.0); MONO % 6.9 % (0.0-8.0); MONOCYTE # 0.8 TH/MM3 (0-0.9); NEUT % 79.3 % (16.0-70.0); PLATELET COUNT 157 TH/MM3 (150-450); RED BLOOD COUNT 4.56 MIL/MM3 (4.50-5.90); RED CELL DISTRIBUTION WIDTH 12.9 % (11.6-17.2)
--- NOTE | 2017-09-07 11:37 | HHI.PR ---
Subjective Remarks in no acute distress. resting comfortably. no fever. d/w the RN and no acute issues over night. wants to go home today. Objective Vitals Vital Signs Date Time Temp Pulse Resp B/P (MAP) Pulse Ox O2 Delivery O2 Flow Rate FiO2 09/07/17 08:00 98.6 63 18 111/63 (79) 98 09/07/17 05:11 21 09/07/17 04:30 98.0 67 17 118/69 (85) 97 09/07/17 00:00 97.8 75 18 115/75 (88) 96 09/06/17 21:45 98.6 78 17 111/71 (84) 95 09/06/17 18:50 89 16 131/69 (89) 94 Nasal Cannula 2 09/06/17 18:45 92 16 127/70 (89) 95 Nasal Cannula 2 09/06/17 18:29 89 16 126/71 (89) 95 Nasal Cannula 2 09/06/17 18:15 89 16 125/68 (87) 93 Room Air 09/06/17 18:06 97.6 104 16 136/72 (93) 94 Nasal Cannula 2 09/06/17 16:00 98.1 68 16 136/72 (93) 96 09/06/17 14:15 98.0 78 16 123/66 (85) 94 I/O 09/06/17 09/06/17 09/06/17 09/07/17 09/07/17 09/07/17 07:00 15:00 23:00 07:00 15:00 23:00 Intake Total 1300 ml 900 ml Output Total 10 ml Balance 1290 ml 900 ml Intake Oral 800 ml 900 ml Other 500 ml Output Estimated Blood Loss 10 ml # Voids 1 2 # Bowel Movements 0 0 Result Diagram: 09/07/17 1103 09/06/17 0930 Objective Remarks GENERAL: This is a well-nourished, well-developed patient, in no apparent distress. CARDIOVASCULAR: Regular rate and regular rhythm without murmurs, gallops, or rubs. RESPIRATORY: Clear to auscultation. Breath sounds equal bilaterally. No wheezes , rales, or rhonchi. GASTROINTESTINAL: Abdomen soft, non-tender, nondistended. Normal, active bowel sounds MUSCULOSKELETAL: Extremities without clubbing, cyanosis, or edema. NEURO: Alert & Oriented x4 to person, place, time, situation. Moves all ext x4 genitalia; s/p I/D of the scrotal abscess Procedures I/D of scrotal abscess Medications and IVs Inpatient Medications Acetaminophen/ Hydrocodone Bitart ([place] 5-325 Mg) 2 tab Q4H PRN PO PAIN SCALE 7 TO 10; Start 09/06/17 at 17:00 Dextrose (D50w (Vial) Inj) 50 ml UNSCH PRN IV PUSH HYPOGLYCEMIA-SEE COMMENTS; Start 09/06/17 at 19:45 Gabapentin (Neurontin) 200 mg TID PO Last administered on 09/07/17at 08:23; Start 09/07/17 at 09:00 Glucagon (Glucagon Inj) 1 mg UNSCH PRN OTHER HYPOGLYCEMIA-SEE COMMENTS; Start 09/06/17 at 19:45 Insulin Aspart (NovoLOG SUPPLEMENTAL SCALE) 1 ACHS SLIDING SCALE SQ ; Start 09/06/17 at 21:00 Miscellaneous Information ([facility] Nursing Information) ALL NURSING DEPARTME... UNSCH PRN .XX SEE LABEL COMMENTS; Start 09/06/17 at 18:15; Stop 09/07/17 at 18:14 Miscellaneous Information ([facility] Ordered Lab Info) SPECIFIC LAB TO BE DRAWN:VANCO TROUGH DATE... ONCE ONCE .XX ; Start 09/08/17 at 08:45; Stop at 08:46 Morphine Sulfate (Morphine Inj) 2 mg Q4H PRN IV BREAKTHROUGH PAIN; Start at 17:00 Pharmacy Profile Note 0 ml @ 0 mls/hr UNSCH OTHER ; Start 09/06/17 at 11:15 Piperacillin Sod/ Tazobactam Sod 50 ml @ 100 mls/hr Q6H IV Last administered on 09/07/17at 04:28; Start 09/06/17 at 17:00 Prochlorperazine Edisylate (Compazine Inj) 5 mg Q6H PRN IV PUSH nausea Last administered on 09/06/17at 19:52; Start 09/06/17 at 19:45 Sodium Chloride 1,000 ml @ 100 mls/hr Q10H IV Last administered on 09/06/17at 21 :39; Start 09/06/17 at 12:00 Sodium Chloride (NS Flush) 2 ml UNSCH PRN IV FLUSH FLUSH AFTER USING IV ACCESS Last administered on 09/06/17at 19:52; Start 09/06/17 at 08:30 Vancomycin HCl 1000 mg/Sodium Chloride 250 ml @ 250 mls/hr ONCE ONCE IV Last administered on 09/06/17at 10:12; Start 09/06/17 at 10:15; Stop 09/06/17 at 11:18; Status DC Vancomycin HCl 1500 mg/Sodium Chloride 515 ml @ 250 mls/hr Q12H IV Last administered on 09/06/17at 21:39; Start 09/06/17 at 21:00 A/P Problem List: (1) Scrotal abscess ICD Code: N49.2 - Inflammatory disorders of scrotum Assessment and Plan - scrotal abscess urology consulted- s/p I/D- will switch to oral antibiotics. -diabetes mellitus; diet controlled- accu-check with SSI- -hypertension; resumed home meds upon discharge- will monitor. Discharge Planning dc home today. see med list. f/u; pcp and urology. d/w the patient and RN. Guerrero Gustafson MD Sep 07, 2017 11:37
[2017-09-07] MEDS ORDERED: BACT800T5 PO (11:41)
[2017-09-07] MEDS ORDERED: HYDR-3516 PO (11:41)
[2017-09-08] MEDS ORDERED: PHARMACY ORDERED LAB ONE (08:45)
== END 2017-09-07 12:44 | disposition home or self-care (01) | DRG 728 ==
LOC: NEPC 08:04 → NEDA 10:38 → N05A 13:46
PROVIDERS: ADMIT Internal Medicine; ATTEND Internal Medicine
PROC: 0V953ZZ Drainage of Scrotum, Percutaneous Approach (ICD-10-PCS; principal; 2017-09-06 16:55)
DX: N49.2 Inflammatory disorders of scrotum (principal); E11.40 Type 2 diabetes mellitus with diabetic neuropathy, unspecified; I10 Essential (primary) hypertension; K21.9 Gastro-esophageal reflux disease without esophagitis; E78.00 Pure hypercholesterolemia, unspecified; M19.90 Unspecified osteoarthritis, unspecified site; F17.210 Nicotine dependence, cigarettes, uncomplicated; F10.20 Alcohol dependence, uncomplicated; Z83.3 Family history of diabetes mellitus
CPT/HCPCS: 80053; 82948; 83605; 83690; 85025; 87015; 87040; 87070; 87116; 87185; 87205; 87206; J0330; J0780; J2270; J2405; J2543; J3010; J3370; J7030; J7040; J7050; J7613